=== PATIENT | female | born 1965 | race Caucasian/White ===

== ENCOUNTER 2021-09-11 22:19 | Emergency (ER) | payer MEDICAID ==
[~2021-09-11] VITALS: Ht 154.9 cm; Wt 54.4 kg
[2021-09-11] MEDS ORDERED: XANAX1 MG PO (22:42)
--- OUTSIDE RECORDS SUMMARY | 2021-09-12 00:24 | XMS ---
PreManage Notification: [facility]IL[employer] Knitter Events No recent Security Events currently on file CRITERIA MET - [facility] CARE PROVIDERS TIERNEY REYNOLDS Counselor: Mental Health Current ADRY PHONE: [phone] [facility] Current PHONE: Unknown DAPHNE CORONADO Counselor: Mental Health Current PHONE: [phone] Guidelines Source: [facility] Date: 05/11/2021 Care Recommendation: This patient is managed through the [facility] since May 10, 2019. \T\nbsp;Please call at or for additional information Primary Care Provider (PCP) is Caden Srinivasan at .\T\nbsp; Notify PCP if giving any additional narcotics for objective findings.\T\nbsp;PCP\ T\nbsp;supports enrollment in the [facility]. Medical/Surgical History: - Chronic Back Pain - Seeing her pcp for pain management -May benefit from another orthopedic or pain mgt consult to determine need for chronic opioid therapy - Obesity Problem List: -Dangerous prescribing of high dose opioids, muscle relaxers and benzo\T\#39;s -underlying unmet behavioral health issues Behavioral Health: PTSD, Bipolar Disorder - Dr. Canela is prescribing #90 alprazolam monthly. Last filled . Substance Abuse: Chronic opioid use- r/o OUD, has been dismissed from pain clinic due to UA results per verbal report of patient.\T\nbsp; Has been instructed by numerous providers to limit use of controlled substances. Social Needs: Lives with Pain/Opioid Agreement: She has a diagnosis of chronic pain.\T\nbsp; Her PCP, Dr. Srinivasan is prescribing her #180 oxycodone 10mg monthly in addition to #60 soma. Has been dismissed from [facility] in 2017.\T\nbsp; Was a patient of Dr. Penn until she left in 2016. Overdose Alert: Accidental OD on 05/08/19 with soma, oxycodone and alprazolam.\T\nbsp; ED provider recommended stopping Soma and weaning opioids. [facility] provided her with nasal Narcan kit and instructed on use 05/08/19. Additional Information: Please do not give this Care Guideline to the patient.\T\nbsp; This document is for provider and staff use only. The following guidelines were formulated by the [facility] on May 10, 2019 This patient is managed by the [facility].\T\nbsp; Please call for additional information. [facility] (12 MO.) [facility] T[facility] 2 NOTE: Visits indicate total known visits. ED/UCC VISIT TRACKING (12 MO.) 09/11/2021 22:21 [facility] [place] TYPE: Emergency COMPLAINT: - [facility]AR[facility] DIAGNOSES: - Head Injury INPATIENT VISIT TRACKING (12 MO.) No inpatient visits to display in this time frame [email or web address]
== END 2021-09-12 00:08 | disposition home or self-care (01) ==
LOC: ED 22:19
DX: Z02.89 Encounter for other administrative examinations (principal)
CPT/HCPCS: 99283